=== PATIENT | male | born 1990 | race Two or more races ===

== ENCOUNTER 2022-01-12 13:45 | Emergency (ER) | payer OTHER ==
[~2022-01-12] VITALS: Ht 172.7 cm; Wt 84.4 kg
--- NOTE | 2022-01-12 13:50 | NUR ---
BIB [facility] AND [employer] OFFICERS FROM [facility] FOR EVAL AND TREATMENT OF LEFT AXILLARY ABSCESS. PAIN IS 5/10 ON PAIN SCALE. AWAITING EVAL.
[2022-01-12] MEDS ORDERED: LIDOCAINE 2% 20 ML MDV ONE (13:59)
--- NOTE | 2022-01-12 14:13 | NUR ---
DR MCKEE AT BEDSIDE FOR EVAL.
[2022-01-12] MEDS ORDERED: TETRACAINE/BENZOCAINE/BUTAMBEN 56 GM SPRAY TP ONE ×2 (14:20→14:30)
[2022-01-12] MEDS ORDERED: LIDOCAINE 2% 20 ML MDV TP ONE (14:30)
[2022-01-12] MEDS ORDERED: CEPH500C2 PO (15:09)
[2022-01-12] MEDS ORDERED: SULF1TAB48 PO (15:09)
[2022-01-12] MEDS ORDERED: BACITRACIN ZINC OINT PACKET 1 EA PACKET TP ONE (15:12)
[2022-01-12] MEDS ORDERED: CEPHALEXIN MONOHYDRATE 500 MG CAPSULE PO ONE ×2 (15:13→15:30)
--- NOTE | 2022-01-12 15:21 | NUR ---
Patient discharged to home in stable condition. Written and verbal after care instructions given. Patient verbalizes understanding of instruction.
[2022-01-12 15:22] VITALS: BP 133/74
[2022-01-12] MEDS ORDERED: SULFAMETH/TRIMETH 800/160 MG 1 UDTAB TABLET PO ONE (15:30)
== END 2022-01-12 15:22 ==
LOC: ER 13:49
DX: L02.412 Cutaneous abscess of left axilla (principal); L03.112 Cellulitis of left axilla; Z60.2 Problems related to living alone
CPT/HCPCS: 99283; 10060; A6403; A6407 ×3; J3490